=== PATIENT | male | born 1975 ===

== ENCOUNTER 2022-07-09 21:14 | Emergency (ER) | payer BC ==
[2022-07-09] MEDS ORDERED: Ketorolac 60 MG/2 ML SDV IM ONE (21:30)
[2022-07-09] MEDS ORDERED: Lidocaine 1% 5 ML VIAL ONE (21:51)
[2022-07-09] MEDS ORDERED: cefTRIAXone 2 GM Vial IM ONE (22:13)
== END 2022-07-09 22:48 | disposition home or self-care (01) ==
LOC: CC.ED 21:14
DX: N41.9 Inflammatory disease of prostate, unspecified (principal); Z88.8 Allergy status to other drugs, medicaments and biological substances; Z79.899 Other long term (current) drug therapy
CPT/HCPCS: 36415; 80053; 81001; 85025; 96372; 99283; 99284; J0696; J1885